=== PATIENT | female | born 1950 | race Caucasian/White ===

== ENCOUNTER 2019-05-13 05:59 | Emergency (ER) | payer MEDICARE, BC ==
--- NOTE | 2019-05-13 07:03 | EDM.PDOC ---
<Lindsey Farmer - Last Filed: 05/13/19 07:14> ED HPI GENERAL MEDICAL PROBLEM - General Chief Complaint: Genitourinary Problem Stated Complaint: BLOOD IN URINE Time Seen by Provider: 05/13/19 06:58 Source of Information: Reports: Patient, Family History Limitations: Reports: No Limitations - History of Present Illness INITIAL COMMENTS - FREE TEXT/NARRATIVE: pt went off of xeralto about 3 weeks ago. Isabel had a history of a irregulat heart beat. Onset: Today, Other ( started about 4 am. Now she is passing gross bloody looking urine. ) Duration: Hour(s): Location: Reports: Abdomen, Other (pt is not having dysuria like typical for a severe uti. She has had urinary frequency/ ) Associated Symptoms: Reports: Nausea/Vomiting - Related Data Allergies Allergy/AdvReac Type Severity Reaction Status Date / Time No Known Allergies Allergy Verified 10/15/16 14:35 Home Meds: Home Meds Furosemide [Lasix] 40 mg PO DAILY 01/07/15 [History] Nitroglycerin 0.4 mg SL ASDIRECTED PRN 01/07/15 [History] Omeprazole [Prilosec] 20 mg PO BID 01/07/15 [History] Diltiazem HCl [Dilt-Xr] 240 mg PO ASDIRECTED 05/13/19 [History] Empagliflozin [Jardiance] 25 mg PO ASDIRECTED 05/13/19 [History] Past Medical History HEENT History: Reports: Impaired Vision Cardiovascular History: Reports: High Cholesterol, Hypertension Gastrointestinal History: Reports: GERD Genitourinary History: Reports: Renal Calculus Other Genitourinary History: 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: Musculoskeletal History: Reports: Fracture Endocrine/Metabolic History: Reports: Diabetes, Type II, Obesity/BMI 30+ Hematologic History: Reports: Anemia, Blood Transfusion(s) Oncologic (Cancer) History: Reports: Basal Cell Carcinoma Dermatologic History: Reports: Cellulitis - Infectious Disease History Infectious Disease History: Reports: Chicken Pox, Measles, Mumps - Past Surgical History GI Surgical History: Reports: Cholecystectomy Female Surgical History: Reports: Tubal Ligation Musculoskeletal Surgical History: Reports: Other (See Below) Social & Family History - Family History Family Medical History: Noncontributory - Tobacco Use Smoking Status *Q: Never Smoker - Caffeine Use Caffeine Use: Reports: Coffee, Tea Caffeine Use Comment: daily use - Recreational Drug Use Recreational Drug Use: No ED ROS GENERAL - Review of Systems Review Of Systems: See Below Constitutional: Reports: No Symptoms HEENT: Reports: No Symptoms Respiratory: Reports: No Symptoms Cardiovascular: Reports: No Symptoms Endocrine: Reports: No Symptoms GI/Abdominal: Reports: Other ( very mild pain in the lower abdoman. She feels like she is not emptying her bladder) : Reports: Frequency Musculoskeletal: Reports: No Symptoms Skin: Reports: No Symptoms ED EXAM, GI/ABD - Physical Exam Exam: See Below Text/Narrative:: pt arrived with gross hematuria. She has frequency but she is not having alot of pain with voiding. Exam Limited By: No Limitations General Appearance: Alert, Anxious, Mild Distress Ears: Normal TMs Nose: Normal Inspection Throat/Mouth: Normal Inspection Head: Atraumatic Neck: Normal Inspection Respiratory/Chest: No Respiratory Distress Cardiovascular: Regular Rate, Rhythm GI/Abdominal Exam: Tender, Other ( very mild tenderness in the lower abdoman. ) (Female) Exam: Deferred Rectal (Female) Exam: Deferred Back Exam: Normal Inspection Extremities: Other ( pt has chronic edema which is not more than usual. ) Neurological: Alert, Oriented, Normal Cognition Psychiatric: Normal Affect Course - Vital Signs Last Recorded V/S: Last Vital Signs Temp 97.2 F 05/13/19 06:20 Pulse 68 05/13/19 08:48 Resp 14 05/13/19 08:48 BP 140/64 05/13/19 08:48 Pulse Ox 100 05/13/19 08:48 - Orders/Labs/Meds Orders: Active Orders 24 hr Category Date Time Status Bladder Scan [RC] ASDIRECTED Care 05/13/19 07:01 Active EKG Documentation Completion [RC] ASDIRECTED Care 05/13/19 07:02 Active CULTURE URINE [RM] Stat Lab 05/13/19 07:06 Received EKG 12 Lead [EK] Routine Ther 05/13/19 07:02 Ordered Labs: Laboratory Tests 05/13/19 05/13/19 05/13/19 Range/Units 06:24 07:06 07:06 WBC 9.0 (4.5-11.0) K/uL RBC 4.91 (3.30-5.50) M/uL Hgb 10.5 L (12.0-15.0) g/dL Hct 36.7 (36.0-48.0) % MCV 75 L (80-98) fL MCH 21 L (27-31) pg MCHC 29 L (32-36) % Plt Count 294 (150-400) K/uL Neut % (Auto) 82 H (36-66) % Lymph % (Auto) 9 L (24-44) % Tyrrell % (Auto) 8 H (2-6) % Eos % (Auto) 1 L (2-4) % Baso % (Auto) 0 (0-1) % PT (9.5-12.0) sec INR (0.80-1.20) APTT (27.0-36.0) sec Sodium 142 (140-148) mmol/L Potassium 3.6 (3.6-5.2) mmol/L Chloride 105 (100-108) mmol/L Carbon Dioxide 28 (21-32) mmol/L Anion Gap 9.3 (5.0-14.0) mmol/L BUN 14 (7-18) mg/dL Creatinine 1.0 (0.6-1.0) mg/dL Est Cr Clr Drug Dosing 49.12 mL/min Estimated GFR (MDRD) 55 L (>60) Glucose 128 H (74-106) mg/dL Calcium 9.0 (8.5-10.1) mg/dL Total Bilirubin 0.5 (0.2-1.0) mg/dL AST 13 L (15-37) U/L ALT 21 (12-78) U/L Alkaline Phosphatase 97 (46-116) U/L C-Reactive Protein (0.0-0.3) mg/dL Total Protein 7.1 (6.4-8.2) g/dL Albumin 3.6 (3.4-5.0) g/dL Globulin 3.5 (2.3-3.5) g/dL Albumin/Globulin Ratio 1.0 L (1.2-2.2) Urine Color Red Urine Appearance Cloudy Urine pH 6.5 (4.5-8.0) Ur Specific [place] 1.015 (1.008-1.030) Urine Protein 500 H (NEGATIVE) mg/dL Urine Glucose (UA) >1000 H (NEGATIVE) mg/dL Urine Ketones Negative (NEGATIVE) mg/dL Urine Occult Blood Large (NEGATIVE) Urine Nitrite Negative (NEGATIVE) Urine Bilirubin Negative (NEGATIVE) Urine Urobilinogen Normal (NORMAL) mg/dL Ur Leukocyte Esterase Negative (NEGATIVE) Urine RBC Packed H (0-5) Urine WBC (0-5) 05/13/19 05/13/19 05/13/19 Range/Units 07:06 07:07 07:07 WBC (4.5-11.0) K/uL RBC (3.30-5.50) M/uL Hgb (12.0-15.0) g/dL Hct (36.0-48.0) % MCV (80-98) fL MCH (27-31) pg MCHC (32-36) % Plt Count (150-400) K/uL Neut % (Auto) (36-66) % Lymph % (Auto) (24-44) % Tyrrell % (Auto) (2-6) % Eos % (Auto) (2-4) % Baso % (Auto) (0-1) % PT 10.0 (9.5-12.0) sec INR 0.90 (0.80-1.20) APTT 28.3 (27.0-36.0) sec Sodium (140-148) mmol/L Potassium (3.6-5.2) mmol/L Chloride (100-108) mmol/L Carbon Dioxide (21-32) mmol/L Anion Gap (5.0-14.0) mmol/L BUN (7-18) mg/dL Creatinine (0.6-1.0) mg/dL Est Cr Clr Drug Dosing mL/min Estimated GFR (MDRD) (>60) Glucose (74-106) mg/dL Calcium (8.5-10.1) mg/dL Total Bilirubin (0.2-1.0) mg/dL AST (15-37) U/L ALT (12-78) U/L Alkaline Phosphatase (46-116) U/L C-Reactive Protein 0.43 H (0.0-0.3) mg/dL Total Protein (6.4-8.2) g/dL Albumin (3.4-5.0) g/dL Globulin (2.3-3.5) g/dL Albumin/Globulin Ratio (1.2-2.2) Urine Color Urine Appearance Urine pH (4.5-8.0) Ur Specific [place] (1.008-1.030) Urine Protein (NEGATIVE) mg/dL Urine Glucose (UA) (NEGATIVE) mg/dL Urine Ketones (NEGATIVE) mg/dL Urine Occult Blood (NEGATIVE) Urine Nitrite (NEGATIVE) Urine Bilirubin (NEGATIVE) Urine Urobilinogen (NORMAL) mg/dL Ur Leukocyte Esterase (NEGATIVE) Urine RBC (0-5) Urine WBC (0-5) Meds: Medications Discontinued Medications Generic Name Dose Route Start Last Admin Trade Name Freq PRN Reason Stop Dose Admin Sodium Chloride 1,000 mls @ 1,000 mls/hr 05/13/19 08:45 05/13/19 08:47 Normal Saline IV 1,000 mls/hr ASDIRECTED SOFYA Administration Sodium Chloride 80 mls @ 3 mls/sec 05/13/19 08:59 05/13/19 09:17 Normal Saline IV 05/13/19 09:00 3.5 mls/sec ONETIME ONE Administration Iopamidol 150 ml 05/13/19 09:00 05/13/19 09:14 Isovue-300 (61%) IV 150 ml . DIRECTED SOFYA Administration Sodium Chloride 10 ml 05/13/19 08:59 05/13/19 09:18 Normal Saline FLUSH 05/13/19 09:00 10 ml ONETIME ONE Administration Departure - Departure Disposition: Home, Self-Care 01 Clinical Impression: Hematuria Qualifiers: Hematuria type: gross Qualified Code(s): R31.0 - Gross hematuria - Discharge Information Instructions: Hematuria, Adult Referrals: PCP,None [Primary Care Provider] - Forms: ED Department Discharge Care Plan Goals: Take antibiotic twice daily as prescribed, continue any other regular medications and you should be getting a call from [facility] today regarding an appointment or follow-up in the next several days. Return if you become obstructed, develop pain and cannot urinate. <Sesar Nieves - Last Filed: 05/13/19 12:02> Course - Orders/Labs/Meds Meds: Medications Discontinued Medications Generic Name Dose Route Start Last Admin Trade Name Freq PRN Reason Stop Dose Admin Sodium Chloride 1,000 mls @ 1,000 mls/hr 05/13/19 08:45 05/13/19 08:47 Normal Saline IV 1,000 mls/hr ASDIRECTED SOFYA Administration Sodium Chloride 80 mls @ 3 mls/sec 05/13/19 08:59 05/13/19 09:17 Normal Saline IV 05/13/19 09:00 3.5 mls/sec ONETIME ONE Administration Iopamidol 150 ml 05/13/19 09:00 05/13/19 09:14 Isovue-300 (61%) IV 150 ml . DIRECTED SOFYA Administration Sodium Chloride 10 ml 05/13/19 08:59 05/13/19 09:18 Normal Saline FLUSH 05/13/19 09:00 10 ml ONETIME ONE Administration - Re-Assessments/Exams Free Text/Narrative Re-Assessment/Exam: 05/13/19 07:44 68-year-old female with dysuria and increased urinary frequency for the past 24 hours, and hematuria for the past 3 and half hours. Workup initiated by Dr. Farmer, labs ordered and UA showed packed RBCs. Culture initiated. Labs are pending, I did go visit but the patient pending labs and she stable and relatively asymptomatic, no fever. In a normal sinus rhythm. If all labs are reassuring, a course of antibiotics with recheck of the UA after the antibiotics course would be reasonable. 05/13/19 08:33 Labs returned reassuring, hemoglobin is 10.5 which is consistent with 2 weeks ago. However the patient continued to have pati hematuria, so a CT the abdomen and pelvis with IV contrast was ordered. 05/13/19 10:01 CT scan showed what appeared to be a mass effect in the bladder, clot or tumor. Discussed this with urology in [place] Dr. Gutiérrez at 9:50 AM. They will call the patient and arrange a visit with urology in [place] in the next several days. She should return if she becomes obstructed. She'll also be placed on ciprofloxacin 500 mg twice daily. Departure - Departure Time of Disposition: 10:46
[2019-05-13] MEDS ORDERED: Sodium Chloride 0.9% 1,000 ML IV SCH (08:45)
[2019-05-13 08:49] VITALS: BP 140/64
[2019-05-13] MEDS ORDERED: Sodium Chloride 0.9% 80 ML IV ONE (08:59)
[2019-05-13] MEDS ORDERED: Sodium Chloride 0.9% 10 ML SDV FLUSH ONE (08:59)
[2019-05-13] MEDS ORDERED: Iopamidol 612 MG/ML 150 ML Bottle IV SCH (09:00)
--- NOTE | 2019-05-13 11:36 | CT ---
Abdomen Pelvis w wo Cont: 05/13/2019 9:08 AM INDICATION: hematuria COMPARISON: CTA of the abdomen and pelvis performed on 09/29/2011. TECHNIQUE: Axial images were obtained through the abdomen and pelvis both before and after after administration of intravenous contrast following the CT urogram protocol. Coronal and sagittal MIP reformats were obtained and reviewed. FINDINGS: Lower thorax: Visualized portions are within normal limits. Liver: Unremarkable. Gallbladder/biliary: Status post cholecystectomy Spleen: Unremarkable. 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 Adrenal glands: Unremarkable. Kidneys/ureters: No hydronephrosis or nephrolithiasis of either kidney. No suspicious appearing renal lesions. Normal excretion of both kidneys. No filling defects are identified in the renal collecting systems. No filling defects are identified in the ureters. No apparent ureteral strictures. No ureteral calculi. Stomach: Moderate size sliding-type hiatal hernia. Otherwise unremarkable. Duodenum and small bowel: Unremarkable. No findings to suggest obstruction.. Colon: Colonic diverticulosis without evidence of diverticulitis. Otherwise within normal limits. Appendix: Unremarkable. Pancreas: Unremarkable. Vascular structures: Atherosclerosis. No acute findings. Calcified splenic artery aneurysm as discussed above. Mild ectasia of the iliac arteries.. Peritoneum: Unremarkable. No ascites or pneumoperitoneum. No pathologically enlarged intra-abdominal lymph nodes. Retroperitoneum: Unremarkable. No pathologically enlarged retroperitoneal lymph nodes. Reproductive structures: Within normal limits. Tubal ligation clips. Urinary bladder: There is high density, masslike material present at the right ureterovesicular junction which likely represents a blood clot. This measures approximately 4.5 cm transverse x 2.4 cm AP x 3.9 cm craniocaudad. There is no definite associated enhancement of this area, however the adjacent bladder wall is difficult to evaluate. No bladder calculi. Pelvic sidewall: Small right external iliac chain lymph nodes, somewhat conspicuous in number. Inguinal regions: Prominent right inguinal region lymph nodes which are asymmetrically enlarged relative to the left side. These measure up to 2.0 x 1.7 cm. However, these are similar to the examination performed in 2010. Osseous structures: Moderate multilevel lumbar spondylosis and degenerative disc disease. Moderate impingement of the hips and SI joints.. No acute osseous abnormalities or aggressive osseous lesions. IMPRESSION: 1. High attenuation, masslike material present at the right ureterovesicular junction, compatible with blood clot. Although definite underlying urothelial lesion is identified, possible small TCC with associated hemorrhage is not excluded. Recommend cystoscopic correlation. No evidence of urinary tract calculi. 2. Prominent right axillary region lymph nodes, unchanged from the examination performed 2010. These are nonspecific and are likely reactive. 3. Other ancillary findings as detailed above. 4. Above findings and recommendations were discussed in person with Dr. Nieves by Dr. Melgar at approximately 945 AM on 05/13/2019.
== END 2019-05-13 10:46 | disposition home or self-care (01) ==
LOC: JP.ED 05:59
DX: R31.0 Gross hematuria (principal); E78.00 Pure hypercholesterolemia, unspecified; I10 Essential (primary) hypertension; K21.9 Gastro-esophageal reflux disease without esophagitis; E11.9 Type 2 diabetes mellitus without complications; E66.9 Obesity, unspecified; Z79.899 Other long term (current) drug therapy; Z68.41 Body mass index [BMI] 40.0-44.9, adult
CPT/HCPCS: 36415; 51798; 74178; 80053; 81001; 85025; 85610; 85730; 86140; 87086; 93005; 96360; 99284; J7030; 93010; 99283

== ENCOUNTER 2019-11-07 01:35 | Emergency (ER) | payer MEDICARE, BC ==
--- NOTE | 2019-11-07 02:08 | EDM.PDOC ---
ED HPI GENERAL MEDICAL PROBLEM - General Chief Complaint: Chest Pain Stated Complaint: SEVERE HEARTBURN Time Seen by Provider: 11/07/19 02:00 Source of Information: Reports: Patient History Limitations: Reports: No Limitations - History of Present Illness INITIAL COMMENTS - FREE TEXT/NARRATIVE: 69-year-old with history of hypertension, GERD, hiatal hernia presents with concerns of chest pain. Symptoms started approximately 10:30 PM. She awoke from sleep with a burning sensation substernally, some associated pressure, with radiation into her back. She was also belching and tasted acid-like material in her mouth. Since she been sitting up the pain has improved somewhat, but still persistent. Pain feels similar to her prior episodes of heartburn but she's never had it this severe. She doesn't have any associated dyspnea. Pain is nonexertional. Nonpleuritic. Does have chronic lower extremity swelling. gallbladder has been removed. upper back pain Pain Score (Numeric/FACES): 4 chest pain Pain Score (Numeric/FACES): 4 - Related Data Allergies Allergy/AdvReac Type Severity Reaction Status Date / Time No Known Allergies Allergy Verified 11/07/19 01:42 Home Meds: Home Meds Furosemide [Lasix] 40 mg PO DAILY 01/07/15 [History] Nitroglycerin 0.4 mg SL ASDIRECTED PRN 01/07/15 [History] Omeprazole [Prilosec] 20 mg PO BID 01/07/15 [History] Diltiazem HCl [Dilt-Xr] 240 mg PO ASDIRECTED 05/13/19 [History] Empagliflozin [Jardiance] 25 mg PO DAILY 05/13/19 [History] Cholecalciferol (Vitamin D3) [Vitamin D] 5,000 unit PO DAILY 11/07/19 [History] Losartan/Hydrochlorothiazide [Losartan-HCTZ 100-12.5 MG] 0.5 each PO BID [History] Past Medical History HEENT History: Reports: Impaired Vision Cardiovascular History: Reports: High Cholesterol, Hypertension Gastrointestinal History: Reports: GERD, Hiatal Hernia Genitourinary History: Reports: Renal Calculus Other Genitourinary History: 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: Musculoskeletal History: Reports: Fracture, Other (See Below) Other Musculoskeletal History: Fx left leg Neurological History: Reports: MS Endocrine/Metabolic History: Reports: Diabetes, Type II, Obesity/BMI 30+ Hematologic History: Reports: Anemia, Blood Transfusion(s) Oncologic (Cancer) History: Reports: Basal Cell Carcinoma Dermatologic History: Reports: Cellulitis - Infectious Disease History Infectious Disease History: Reports: Measles, Mumps - Past Surgical History GI Surgical History: Reports: Cholecystectomy Female Surgical History: Reports: Tubal Ligation Social & Family History - Family History Family Medical History: Noncontributory - Tobacco Use Smoking Status *Q: Never Smoker - Caffeine Use Caffeine Use: Reports: Coffee Caffeine Use Comment: daily use - Recreational Drug Use Recreational Drug Use: No ED ROS GENERAL - Review of Systems Review Of Systems: See Below Constitutional: Reports: No Symptoms HEENT: Reports: No Symptoms Respiratory: Reports: No Symptoms Cardiovascular: Reports: Chest Pain Endocrine: Reports: No Symptoms GI/Abdominal: Reports: No Symptoms : Reports: No Symptoms Musculoskeletal: Reports: No Symptoms Skin: Reports: No Symptoms Neurological: Reports: No Symptoms Psychiatric: Reports: No Symptoms Hematologic/Lymphatic: Reports: No Symptoms ED EXAM, GENERAL - Physical Exam Exam: See Below Exam Limited By: No Limitations General Appearance: Alert, No Apparent Distress Ears: Normal External Exam Nose: Normal Inspection Throat/Mouth: Normal Inspection Head: Atraumatic, Normocephalic Neck: Normal Inspection Respiratory/Chest: No Respiratory Distress, Lungs Clear Cardiovascular: Regular Rate, Rhythm, No Murmur GI/Abdominal: Soft, Non-Tender Back Exam: Normal Inspection Extremities: Pedal Edema (left > right) Neurological: Alert, Oriented Psychiatric: Normal Affect, Normal Mood Skin Exam: Warm, Dry Course - Vital Signs Last Recorded V/S: Last Vital Signs Temp 36.1 C 11/07/19 01:48 Pulse 80 11/07/19 01:48 Resp 14 11/07/19 01:48 BP 143/79 H 11/07/19 01:48 Pulse Ox 98 11/07/19 01:48 - Orders/Labs/Meds Labs: Laboratory Tests 11/07/19 11/07/19 11/07/19 Range/Units 02:00 02:00 02:00 WBC 7.9 (4.5-11.0) K/uL RBC 5.02 (3.30-5.50) M/uL Hgb 14.1 D (12.0-15.0) g/dL Hct 43.4 (36.0-48.0) % MCV 87 (80-98) fL MCH 28 (27-31) pg MCHC 33 (32-36) % Plt Count 258 (150-400) K/uL D-Dimer, Quantitative (0.0-400.0) ng/mL Sodium 140 (140-148) mmol/L Potassium 3.8 (3.6-5.2) mmol/L Chloride 102 (100-108) mmol/L Carbon Dioxide 29 (21-32) mmol/L Anion Gap 9.5 (5.0-14.0) mmol/L BUN 22 H D (7-18) mg/dL Creatinine 1.2 H (0.6-1.0) mg/dL Est Cr Clr Drug Dosing 40.38 mL/min Estimated GFR (MDRD) 45 L (>60) Glucose 131 H (74-106) mg/dL Calcium 8.6 (8.5-10.1) mg/dL Total Bilirubin 0.4 (0.2-1.0) mg/dL AST 21 (15-37) U/L ALT 21 (12-78) U/L Alkaline Phosphatase 100 (46-116) U/L Troponin I < 0.017 (0.000-0.056) ng/mL Total Protein 7.5 (6.4-8.2) g/dL Albumin 3.9 (3.4-5.0) g/dL Globulin 3.6 H (2.3-3.5) g/dL Albumin/Globulin Ratio 1.1 L (1.2-2.2) 11/07/19 11/07/19 Range/Units 02:00 05:10 WBC (4.5-11.0) K/uL RBC (3.30-5.50) M/uL Hgb (12.0-15.0) g/dL Hct (36.0-48.0) % MCV (80-98) fL MCH (27-31) pg MCHC (32-36) % Plt Count (150-400) K/uL D-Dimer, Quantitative 134 (0.0-400.0) ng/mL Sodium (140-148) mmol/L Potassium (3.6-5.2) mmol/L Chloride (100-108) mmol/L Carbon Dioxide (21-32) mmol/L Anion Gap (5.0-14.0) mmol/L BUN (7-18) mg/dL Creatinine (0.6-1.0) mg/dL Est Cr Clr Drug Dosing mL/min Estimated GFR (MDRD) (>60) Glucose (74-106) mg/dL Calcium (8.5-10.1) mg/dL Total Bilirubin (0.2-1.0) mg/dL AST (15-37) U/L ALT (12-78) U/L Alkaline Phosphatase (46-116) U/L Troponin I 0.017 (0.000-0.056) ng/mL Total Protein (6.4-8.2) g/dL Albumin (3.4-5.0) g/dL Globulin (2.3-3.5) g/dL Albumin/Globulin Ratio (1.2-2.2) Meds: Medications Discontinued Medications Generic Name Dose Route Start Last Admin Trade Name Freq PRN Reason Stop Dose Admin Al Hydroxide/Mg Hydroxide 15 0 ml 11/07/19 02:18 11/07/19 02:25 ml/ Lidocaine HCl 15 ml PO 11/07/19 02:19 30 ml ONETIME ONE Administration - Re-Assessments/Exams Free Text/Narrative Re-Assessment/Exam: 69-year-old presents for concern of chest pain. On exam she is nontender mildly tachycardic, this is due to ectopy, patient does report a history of irregular heart rate. BP and pulse ox are unremarkable. remainder of exam noncontributory. Sounds most consistent with reflux given her history of GERD and known hiatal hernia. However given her tachycardia, description of the pain and would like to obtain a d-dimer to further r/o PE. although some discomfort in her back this does not sound like aortic pathology No ischemia by EKG, we'll plan to check delta troponin Administering GI cocktail Will follow on telemetry 11/07/19 02:56 Free Text/Narrative Re-Assessment/Exam: Lab, with delta trop unremarkable CXR without acute process Improved with GI cocktail. Continues with mild burning sensation in throat. Will plan to up to bid ppi until PCP follow up. Discharged 11/07/19 06:02 Departure - Departure Time of Disposition: 06:04 Disposition: Home, Self-Care 01 Clinical Impression: Chest pain Qualifiers: Chest pain type: unspecified Qualified Code(s): R07.9 - Chest pain, unspecified GERD (gastroesophageal reflux disease) Qualifiers: Esophagitis presence: esophagitis presence not specified Qualified Code(s): K21.9 - Gastro-esophageal reflux disease without esophagitis Instructions: Gastroesophageal Reflux Disease, Adult, [id number] Referrals: Ziggy Pressley Sr, MD [Primary Care Provider] - Forms: ED Department Discharge Additional Instructions: We believe your symptoms are likely due to you acid reflux. Please double your omeprazole (acid medication) to twice daily. Avoid coffee, alcohol, ibuprofen, or other items which are known to worsen your acid reflux. If you develop significantly worsening pain, shortness of breath, or other symptoms which are concerning to you please return to the ER. Sepsis Event Note - Evaluation Sepsis Screening Result: No Definite Risk - Focused Exam Vital Signs: Vital Signs Temp Pulse Resp BP Pulse Ox 11/07/19 01:48 36.1 C 80 14 143/79 H 98 11/07/19 01:47 36.1 C 80 14 143/79 H 98 Date Exam was Performed: 11/07/19 Time Exam was Performed: 06:02
[2019-11-07] MEDS ORDERED: Alum Hydrox/Mag Hydrox/Simeth 15 ML, Lidocaine 2% 15 ML PO ONE ×2 (02:18)
--- NOTE | 2019-11-07 03:03 | CRLCR ---
INDICATION: CHEST PAIN TECHNIQUE: Chest 2 views. COMPARISON: 12/25/12 FINDINGS: Cardiovascular and mediastinum: Heart size and vasculature are normal in caliber and appearance. Mediastinum is within normal limits. Lungs and pleural spaces: Lungs are clear. No sign of infiltrate or mass. No sign of pleural effusion. No pneumothorax. Bones and soft tissues: No significant findings. IMPRESSION: Unremarkable chest. Dictated by: Sky Walker MD @ 11/07/2019 03:01:31 (Electronically Signed)
[2019-11-07 06:32] VITALS: BP 121/72; PULSE 64
== END 2019-11-07 06:46 | disposition home or self-care (01) ==
LOC: JP.ED 01:35
DX: K21.9 Gastro-esophageal reflux disease without esophagitis (principal); I10 Essential (primary) hypertension; E11.9 Type 2 diabetes mellitus without complications; E03.9 Hypothyroidism, unspecified; E66.9 Obesity, unspecified; Z68.41 Body mass index [BMI] 40.0-44.9, adult; Z79.899 Other long term (current) drug therapy; Z79.84 Long term (current) use of oral hypoglycemic drugs
CPT/HCPCS: 36415; 71046; 80053; 84484; 85027; 85379; 93010; 99285; A9270

== ENCOUNTER 2024-08-19 01:19 | Emergency (ER) | payer MEDICARE, OTHER ==
[2024-08-19 02:00] LABS: BASOPHILS PERCENT AUTO 0.2 % (0.1-1.3); EOSINOPHILS ABSOLUTE AUTO 0.12 K/uL (0.00-0.40); EOSINOPHILS PERCENT AUTO 1.3 % (0.0-5.4); HEMATOCRIT 39.5 % (34.3-46.0); HEMOGLOBIN 13.7 g/dL (11.2-15.5); IMMATURE GRAN ABSOLUTE AUTO 0.04 K/uL (0.00-0.23); IMMATURE GRAN PERCENT AUTO 0.4 % (0.0-0.7); LYMPHOCYTES ABSOLUTE AUTO 1.78 K/uL (0.8-3.3); LYMPHOCYTES PERCENT AUTO 19.2 % (11.4-47.7); MEAN CORPUSCULAR HEMOGLOBIN 29.3 pg (31.6-35.5); MEAN CORPUSCULAR HGB CONC 34.7 g/dL (31.6-35.5); MEAN CORPUSCULAR VOLUME 84.4 fL (81.4-99.0); MONOCYTES ABSOLUTE AUTO 0.91 K/uL (0.20-0.90); MONOCYTES PERCENT AUTO 9.8 % (3.3-12.6); NEUTROPHILS ABSOLUTE AUTO 6.41 K/uL (1.0-7.6); NEUTROPHILS PERCENT AUTO 69.1 % (40.0-78.1); PLATELET COUNT,PLT 211 K/uL (130-375); RED BLOOD CELL COUNT 4.68 M/uL (3.77-5.24); WHITE BLOOD CELL COUNT,WBC 9.3 K/uL (3.2-11.0)
[2024-08-19 02:01] LABS: BASOPHILS ABSOLUTE AUTO 0.02 K/uL (0.00-0.10)
[2024-08-19] MEDS: Sodium Chloride 0.9% 1,000 ML IV SCH (02:01)
[2024-08-19] MEDS: Alum Hydrox/Mag Hydrox/Simeth 15 ML, Lidocaine 2% 15 ML PO ONE (02:02)
[2024-08-19] MEDS: Ondansetron 4 MG/2 ML SDV IVPUSH ONE (02:02)
[2024-08-19] MEDS: Prochlorperazine 10 MG/2 ML SDV IVPUSH ONE (02:10)
[2024-08-19 02:11] LABS: CORONAVIRUS COVID-19 NAA NEGATIVE (NEGATIVE); INFLUENZA A NAA NEGATIVE (NEGATIVE); INFLUENZA B NAA NEGATIVE (NEGATIVE); RESPIRATORY SYNCYTIAL VIR NAA NEGATIVE (NEGATIVE)
[2024-08-19 02:21] LABS: A/G RATIO 1.1 (1.2-2.2); ALANINE AMINOTRANSFERASE,ALT 16 U/L (12-78); ALBUMIN 3.9 g/dL (3.4-5.0); ALKALINE PHOSPHATASE 83 U/L (46-116); ANION GAP 7.8 mmol/L (5.0-14.0); ASPARTATE AMNIOTRANSFERASE,AST 13 U/L (15-37); BILIRUBIN TOTAL 0.6 mg/dL (0.2-1.0); BLOOD UREA NITROGEN,BUN 23 mg/dL (7-18); C-REACTIVE PROTEIN < 0.50 mg/dL (<0.50); CALCIUM 9.7 mg/dL (8.5-10.1); CARBON DIOXIDE,CO2 31 mmol/L (21-32); CHLORIDE,CL 101 mmol/L (100-108); CREATININE 1.6 mg/dL (0.6-1.0); EST CRCL DRUG DOSING (CG) 28.18 mL/min; ESTIMATED GFR 34 mL/min (>60); GLUCOSE RANDOM 150 mg/dL (74-106); PROTEIN TOTAL,TP 7.3 g/dL (6.4-8.2); SODIUM,NA 140 mmol/L (140-148)
[2024-08-19 02:28] LABS: LACTIC ACID 1.2 mmol/L (0.4-2.0)
[2024-08-19] MEDS: Aspirin 81 MG Tab.Chew PO ONE (02:56)
[2024-08-19] MEDS ORDERED: Naloxone 0.4 MG/ML SDV IVPUSH PRN (02:59)
[2024-08-19] MEDS: Nitroglycerin 0.4 MG Tab.SL SL ONE (03:03)
[2024-08-19] MEDS ORDERED: Morphine 2 MG/ML SYRINGE ONE (05:04)
[2024-08-19] MEDS: Morphine 2 MG/ML SYRINGE IVPUSH ONE (05:10)
[2024-08-19 09:33] VITALS: BP 122/68; PULSE 55
== END 2024-08-19 10:41 | disposition other institution (70) ==
LOC: JP.ED 01:19
DX: I20.0 Unstable angina (principal); I10 Essential (primary) hypertension; K21.9 Gastro-esophageal reflux disease without esophagitis; E11.9 Type 2 diabetes mellitus without complications; E66.9 Obesity, unspecified; Z86.16 Personal history of COVID-19; Z90.49 Acquired absence of other specified parts of digestive tract; Z87.891 Personal history of nicotine dependence; Z79.84 Long term (current) use of oral hypoglycemic drugs; Z79.01 Long term (current) use of anticoagulants; Z79.899 Other long term (current) drug therapy; Z68.39 Body mass index [BMI] 39.0-39.9, adult
CPT/HCPCS: 0241U; 36415; 71045; 80053; 83605; 83690; 83735; 83880; 84484; 85025; 85379; 86140; 93005; 96361; 96374; 96375; 99285; A9270; J0780; J2270; J7030

== ENCOUNTER 2025-11-03 14:18 | Inpatient (IN) | payer MEDICARE, OTHER ==
[2025-11-03 15:30] LABS: BASOPHILS ABSOLUTE AUTO 0.02 K/uL (0.00-0.10); BASOPHILS PERCENT AUTO 0.1 % (0.1-1.3); EOSINOPHILS ABSOLUTE AUTO 0.01 K/uL (0.00-0.40); EOSINOPHILS PERCENT AUTO 0.1 % (0.0-5.4); IMMATURE GRAN ABSOLUTE AUTO 0.12 K/uL (0.00-0.23); IMMATURE GRAN PERCENT AUTO 0.8 % (0.0-0.7); LYMPHOCYTES ABSOLUTE AUTO 0.87 K/uL (0.8-3.3); LYMPHOCYTES PERCENT AUTO 5.8 % (11.4-47.7); MONOCYTES ABSOLUTE AUTO 1.02 K/uL (0.20-0.90); MONOCYTES PERCENT AUTO 6.8 % (3.3-12.6); NEUTROPHILS ABSOLUTE AUTO 13.05 K/uL (1.0-7.6); NEUTROPHILS PERCENT AUTO 86.4 % (40.0-78.1); PLATELET COUNT,PLT 250 K/uL (130-375); RED BLOOD CELL COUNT 4.25 M/uL (3.77-5.24); WHITE BLOOD CELL COUNT,WBC 15.1 K/uL (3.2-11.0)
[2025-11-03 15:48] LABS: BLOOD UREA NITROGEN,BUN 17.0 mg/dL (7-18); CARBON DIOXIDE,CO2 26.0 mmol/L (21-32); CHLORIDE,CL 98.0 mmol/L (100-108); CREATININE 1.2 mg/dL (0.6-1.0); EST CRCL DRUG DOSING (CG) 35.52 mL/min; ESTIMATED GFR 48.0 mL/min (>60); GLUCOSE RANDOM 170.0 mg/dL (74-106); POTASSIUM,K 3.0 mmol/L (3.6-5.2); SODIUM,NA 135.0 mmol/L (140-148)
[2025-11-03 17:23] LABS: LACTIC ACID 1.6 mmol/L (0.4-2.0)
[2025-11-03] MEDS: Potassium Chloride 20 MEQ Tab.ER PO ONE (17:55)
[2025-11-03] MEDS: Sodium Chloride 0.9% 10 ML Syringe FLUSH PRN (18:08)
[2025-11-03] MEDS ORDERED: Nitroglycerin 0.4 MG Tab.SL SL PRN (19:09)
[2025-11-03] MEDS: Cholecalciferol (Vitamin D3) 25 MCG Tab PO SCH (21:09)
[2025-11-03] MEDS: Sodium Phosphate,Monobasic/Sodium Phosphate,Dibasic Enema 133 ML Bottle RECTAL ONE (21:09)
[2025-11-04 04:44] LABS: APPEARANCE,URINE SLIGHTLY CLOUDY (CLEAR); GLUCOSE,URINE >=1000 mg/dL (NEGATIVE); OCCULT BLOOD,URINE TRACE-INTACT (NEGATIVE)
[2025-11-04 05:05] LABS: SQUAMOUS EPITHELIAL CELLS,UR FEW /HPF; UROTHELIAL CELLS,URINE NOT SEEN /HPF
[2025-11-04 06:22] LABS: A/G RATIO 0.6 (1.2-2.2); ALANINE AMINOTRANSFERASE,ALT 20 U/L (12-78); ASPARTATE AMNIOTRANSFERASE,AST 22 U/L (15-37); BILIRUBIN TOTAL 0.8 mg/dL (0.2-1.0); BLOOD UREA NITROGEN,BUN 15 mg/dL (7-18); CARBON DIOXIDE,CO2 25 mmol/L (21-32); CHLORIDE,CL 102 mmol/L (100-108); CREATININE 0.9 mg/dL (0.6-1.0); EST CRCL DRUG DOSING (CG) 47.36 mL/min; ESTIMATED GFR 67 mL/min (>60); GLUCOSE RANDOM 107 mg/dL (74-106); POTASSIUM,K 3.4 mmol/L (3.6-5.2); PROTEIN TOTAL,TP 5.8 g/dL (6.4-8.2); SODIUM,NA 137 mmol/L (140-148)
[2025-11-04 07:41] LABS: BASOPHILS PERCENT AUTO 0.2 % (0.1-1.3); EOSINOPHILS ABSOLUTE AUTO 0.04 K/uL (0.00-0.40); EOSINOPHILS PERCENT AUTO 0.3 % (0.0-5.4); IMMATURE GRAN ABSOLUTE AUTO 0.08 K/uL (0.00-0.23); IMMATURE GRAN PERCENT AUTO 0.6 % (0.0-0.7); LYMPHOCYTES ABSOLUTE AUTO 0.85 K/uL (0.8-3.3); LYMPHOCYTES PERCENT AUTO 6.4 % (11.4-47.7); MONOCYTES ABSOLUTE AUTO 0.78 K/uL (0.20-0.90); MONOCYTES PERCENT AUTO 5.9 % (3.3-12.6); NEUTROPHILS ABSOLUTE AUTO 11.47 K/uL (1.0-7.6); NEUTROPHILS PERCENT AUTO 86.6 % (40.0-78.1); PLATELET COUNT,PLT 255 K/uL (130-375); RED BLOOD CELL COUNT 3.76 M/uL (3.77-5.24); WHITE BLOOD CELL COUNT,WBC 13.2 K/uL (3.2-11.0)
[2025-11-04 07:47] LABS: BASOPHILS ABSOLUTE AUTO 0.02 K/uL (0.00-0.10)
[2025-11-04] MEDS: Diltiazem 120 MG Cap.CD PO SCH (08:46)
[2025-11-04] MEDS ORDERED: 50% Dextrose in Water 50 ML Syringe IVPUSH PRN (11:40)
[2025-11-04] MEDS: Ondansetron 4 MG Tab.DIS PO PRN (13:00)
[2025-11-04] MEDS: Potassium Chloride 20 MEQ Tab.ER PO ONE (13:02)
[2025-11-04] MEDS ORDERED: Polyethylene Glycol 3350 Powder 238 GM Bot PO ONE (17:00)
[2025-11-04] MEDS: Insulin Lispro 100 Unit/ML 3 ML KwikPen SUBCUT SCH (17:39)
[2025-11-05 10:41] LABS: BASOPHILS PERCENT AUTO 0.1 % (0.1-1.3); EOSINOPHILS ABSOLUTE AUTO 0.03 K/uL (0.00-0.40); EOSINOPHILS PERCENT AUTO 0.3 % (0.0-5.4); IMMATURE GRAN ABSOLUTE AUTO 0.11 K/uL (0.00-0.23); IMMATURE GRAN PERCENT AUTO 1.1 % (0.0-0.7); LYMPHOCYTES ABSOLUTE AUTO 0.50 K/uL (0.8-3.3); LYMPHOCYTES PERCENT AUTO 4.8 % (11.4-47.7); MONOCYTES ABSOLUTE AUTO 0.73 K/uL (0.20-0.90); MONOCYTES PERCENT AUTO 7.0 % (3.3-12.6); NEUTROPHILS ABSOLUTE AUTO 9.00 K/uL (1.0-7.6); NEUTROPHILS PERCENT AUTO 86.7 % (40.0-78.1); PLATELET COUNT,PLT 338 K/uL (130-375); RED BLOOD CELL COUNT 3.84 M/uL (3.77-5.24); WHITE BLOOD CELL COUNT,WBC 10.4 K/uL (3.2-11.0)
[2025-11-05 10:46] LABS: BASOPHILS ABSOLUTE AUTO 0.01 K/uL (0.00-0.10)
[2025-11-05 11:01] LABS: BLOOD UREA NITROGEN,BUN 16.0 mg/dL (7-18); CARBON DIOXIDE,CO2 25.0 mmol/L (21-32); CHLORIDE,CL 100.0 mmol/L (100-108); CREATININE 1.1 mg/dL (0.6-1.0); EST CRCL DRUG DOSING (CG) 38.75 mL/min; ESTIMATED GFR 53.0 mL/min (>60); GLUCOSE RANDOM 218.0 mg/dL (74-106); POTASSIUM,K 3.6 mmol/L (3.6-5.2); SODIUM,NA 136.0 mmol/L (140-148)
[2025-11-05] MEDS: Albumin Human 25 GM in Premix Bag 1 BAG IV ONE (15:50)
[2025-11-05] MEDS: Polyethylene Glycol 3350 Powder 238 GM Bot PO ONE (15:51)
[2025-11-06] MEDS ORDERED: fentaNYL 100 MCG/2 ML SDV ONE (09:29)
[2025-11-06] MEDS ORDERED: Propofol 200 MG/20 ML SDV ONE ×2 (09:29→09:51)
[2025-11-06] MEDS: Diatrizoate Meglumine/Diatrizoate Sodium 37% 120 ML Bottle PO PRN (13:06)
[2025-11-09 11:18] VITALS: BP 116/60; PULSE 58
[2025-11-09] MEDS: Lactobacillus Rhamnosus GG (Probiotic) Cap PO SCH (13:42)
== END 2025-11-09 14:15 | disposition home or self-care (01) | DRG 603 ==
LOC: JP.ED 14:18 → JP.MS 19:03
PROVIDERS: ADMIT Internal Medicine; ATTEND Internal Medicine
PROC: 3E03329 Introduction of Other Anti-infective into Peripheral Vein, Percutaneous Approach (ICD-10-PCS; principal; 2025-11-03)
PROC: 0DJD8ZZ Inspection of Lower Intestinal Tract, Via Natural or Artificial Opening Endoscopic (ICD-10-PCS; 2025-11-06)
DX: L03.116 Cellulitis of left lower limb (principal); H54.7 Unspecified visual loss; I48.91 Unspecified atrial fibrillation; E78.00 Pure hypercholesterolemia, unspecified; I10 Essential (primary) hypertension; K21.9 Gastro-esophageal reflux disease without esophagitis; Z86.16 Personal history of COVID-19; G35.D Multiple sclerosis, unspecified; E11.9 Type 2 diabetes mellitus without complications; D64.9 Anemia, unspecified; K59.04 Chronic idiopathic constipation; G89.29 Other chronic pain; M16.0 Bilateral primary osteoarthritis of hip; E66.9 Obesity, unspecified; Z68.39 Body mass index [BMI] 39.0-39.9, adult; Z85.828 Personal history of other malignant neoplasm of skin; Z90.49 Acquired absence of other specified parts of digestive tract; Z98.51 Tubal ligation status; Z98.890 Other specified postprocedural states; Z79.82 Long term (current) use of aspirin; Z79.01 Long term (current) use of anticoagulants; Z79.2 Long term (current) use of antibiotics; Z79.4 Long term (current) use of insulin; Z79.84 Long term (current) use of oral hypoglycemic drugs; Z79.899 Other long term (current) drug therapy
CPT/HCPCS: 00811-QZ; 36415; 73521; 73521-26; 74270; 74270-26; 80048; 80053; 81001; 82947; 83036; 83605; 85025; 87040; 87086; 93971-LT; 96365; 97110-GP; 97161-GP; 97165-GO; 97530-GP; 97535-GO; 99284; 99285-25; A9270-GY; J0690; J1160; J2704; J3010; J7030; J7040; P9047; Q0162